=== PATIENT | male | born 1975 | race Two or more races ===

== ENCOUNTER 2024-11-14 20:06 | Emergency (ER) | payer MEDICARE, MEDICAID ==
[~2024-11-14] VITALS: Ht 182.9 cm; Wt 130.0 kg
[2024-11-14] MEDS ORDERED: ATOR10TA PO (20:47)
[2024-11-14] MEDS ORDERED: AMLO1TAB23 PO (20:47)
--- NOTE | 2024-11-14 20:48 | ED.PDOC ---
History of Present Illness HPI Comments 49 year old male presents to ER for medication refill. Patient with past medical history significant for hypertension and hyperlipidemia reports that he ran out of his amlodipine 10 mg QD and atorvastatin 10 mg QD two days ago and presents to ER today for medication refill of these medications, bringing with him his empty prescription bottles of these 2 medications. Denies any pain and states he currently is not experiencing any symptoms. Patient presents to ER ambulatory on arrival, alert oriented x4, with steady gait, in no distress with vitals stable and states he is following up with his PCP in 2 days. Denies headache, dizziness, shortness of breath, chest pain or any further symptoms/complaints Time Seen by MD: 20:08 Primary Care Provider: "HIREN" Reviewed Notes: Nurses Notes, Medications, Allergies Home Meds Active Scripts Atorvastatin Calcium (Lipitor) 10 Mg Tab, 1 TAB PO QPM, #30 TAB 0 Refills Prov:JON CASTILLO 11/14/24 Amlodipine Besylate (Amlodipine Besylate) 10 Mg Tab, 1 TAB PO DAILY, #7 TAB 0 Refills Prov:JON CASTILLO 11/14/24 Information Source: Patient Mode of Arrival: Ambulatory Past Medical History PAST MEDICAL HISTORY: High Lipids, HTN Surgical History: Denies all surgeries Family History Family History: Unknown Social History Smoker: Non-Smoker Alcohol: Denies ETOH Use Drugs: Denies Drug Use Lives In: Home Constitutional: reports: others (As stated in HPI) EENTM: denies: blurred vision, double vision, ear bleeding, ear discharge, ear drainage, ear pain, ear ringing, eye pain, eye redness, hearing loss, mouth pain, mouth swelling, nasal discharge, nose bleeding, nose congestion, nose pain, photophobia, tearing, throat pain, throat swelling, voice changes, others Respiratory: denies: cough, hemoptysis, orthopnea, SOB at rest, shortness of breath, SOB with excertion, stridor, wheezing, others Cardiovascular: denies: chest pain, dizzy spells, diaphoresis, Dyspnea on exertion, edema, irregular heart beat, left arm pain, lightheadedness, palpitations, PND, syncope, others Gastrointestinal: denies: abdomen distended, abdominal pain, blood streaked bowels, constipated, diarrhea, dysphagia, difficulty swallowing, hematemesis, melena, nausea, poor appetite, poor fluid intake, rectal bleeding, rectal pain, vomiting, others Genitourinary: denies: burning, dysuria, flank pain, frequency, hematuria, in continence, penile discharge, penile sore, pain, testicle pain, testicle swelling, urgency, others Neurological: denies: dizziness, fainting, headache, left sided numbness, left sided weakness, numbness, paresthesia, pre-existing deficit, right sided numbness, right sided weakness, seizure, speech problems, tingling, tremors, weakness, others Musculoskeletal: denies: back pain, gout, joint pain, joint swelling, muscle pain, muscle stiffness, neck pain, others Integumetry: denies: bruises, change in color, change in hair/nails, dryness, laceration, lesions, lumps, rash, wounds, others Allergic/Immunocompromised: denies: Difficulty Healing, Frequent Infections, Hives, Itching, others Hematologic/Lymphatic: denies: anemia, blood clots, easy bleeding, easy bruising, swollen glands, others Endocrine: denies: excessive hunger, excessive sweating, excessive thirst, excessive urination, flushing, intolerance to cold, intolerance to heat, unexplained weight gain, unexplained weight loss, others Psychiatric: denies: anxiety, bipolar disorder, depression, hopeless, panic disorder, schizophrenia, sleepless, suicidal, others Physical Exam General Appearance: No Apparent Distress, Obese HEENT: PERRL/EOMI Neck: Full Range of Motion, Non-Tender, Normal Respiratory: Chest Non-Tender, Lungs Clear, No Accessory Muscle Use, No Respiratory Distress, Normal Breath Sounds Cardiovascular: No Murmur, No Gallop, Regular Rate/Rhythm Breast Exam: Deferred Gastrointestinal: NOT DONE Genitalia: Deferred Pelvic: Deferred Rectal: Deferred Extremities: Normal capillary refill, Normal range of motion Neurologic: Alert, finance consultant II-XII nml as Tested, No Motor Deficits, Normal Affect, Normal Mood, No Sensory Deficits Cerebellar Function: Normal Reflexes: Normal Skin: Dry, Normal Color, Warm Lymphatic: No Adenopathy Was a procedure done? Was a procedure done?: No Sedation Sedation?: No Differential Dx Considerations may include: HYPERTENSIVE URGENCY, HYPERTENSIVE EMERGENCY, CVA X-Ray, Labs, Meds, VS PATIENT ASYMPTOMATIC DURING ER VISIT/PRIOR TO DISCHARGE ADVISED TO FOLLOW UP WITH PCP IN 1-2 DAYS PATIENT VERBALIZED UNDERSTANDING AND AGREEABLE WITH CURRENT PLAN OF CARE ADVISED TO RETURN TO ER IMMEDIATELY IF SYMPTOMS WORSEN Time of 1ST Reevaluation: 20:20 Reevaluation 1ST: N/A Patient Education/Counseling: Diagnosis, Treatment, Prognosis, Need For Follow Up Family Education/Counseling: No Family Present Departure 1 Departure Time of Disposition: 20:42 Impression: Primary Impression: Hypertension Qualified Codes: I10 - Essential (primary) hypertension Additional Impressions: Hyperlipemia Qualified Codes: E78.5 - Hyperlipidemia, unspecified Medication refill Disposition: HOME / SELF CARE / HOMELESS Condition: Stable e-Prescriptions Atorvastatin Calcium (Lipitor) 10 Mg Tab 1 TAB PO QPM, #30 TAB 0 Refills Prov: JON CASTILLO 11/14/24 Amlodipine Besylate (Amlodipine Besylate) 10 Mg Tab 1 TAB PO DAILY, #7 TAB 0 Refills Prov: JON CASTILLO 11/14/24 Discharged With: Self Critical Care Note Critical Care Time?: No Stability Stability form required: No Heart Score Heart Score: Heart Score Response (Comments) Value History N/A 0 EKG N/A 0 Age N/A 0 Risk Factors N/A 0 Troponin N/A 0 Total 0 JON CASTILLO Nov 14, 2024 20:48
[2024-11-14 22:42] VITALS: BP 123/79; PULSE 94; RESP 14; TEMP 98.3; O2SAT 95
== END 2024-11-14 22:43 | disposition home or self-care (01) ==
LOC: ER 20:06
DX: I10 Essential (primary) hypertension (principal); E78.5 Hyperlipidemia, unspecified; Z76.0 Encounter for issue of repeat prescription; Z79.899 Other long term (current) drug therapy

== ENCOUNTER 2025-01-14 18:10 | Emergency (ER) | payer MEDICARE, MEDICAID ==
[~2025-01-14] VITALS: Ht 190.5 cm; Wt 127.6 kg
[~2025-01-14 18:10] MED LIST: AMLO1TAB23 PO; ATOR10TA PO
--- NOTE | 2025-01-14 21:23 | ED.PDOC ---
Musculoskeletal HPI Comments 49 y/o M presents with right forearm pain, bruising, and swelling. Onset of symptoms after wrestling, yesterday. No additional injuries or acute symptoms reported. Chief Complaint: Upper Extremity Time Seen by MD: 21:10 Primary Care Provider: "HIREN" Reviewed Notes: Nurses Notes, Medications, Allergies Allergies: Coded Allergies: Hydromorphone (Verified Allergy, Unknown, 11/14/24) Penicillins (Verified Allergy, Unknown, 11/14/24) Home Meds Active Scripts Atorvastatin Calcium (Lipitor) 10 Mg Tab, 1 TAB PO QPM, #30 TAB 0 Refills Prov:JON CASTILLO 11/14/24 Amlodipine Besylate (Amlodipine Besylate) 10 Mg Tab, 1 TAB PO DAILY, #7 TAB 0 Refills Prov:JON CASTILLO 11/14/24 Information Source: Patient Mode of Arrival: Ambulatory Location: Left Extremity Location: Arm Past Medical History PAST MEDICAL HISTORY: High Lipids, HTN Surgical History: Denies all surgeries Family History Family History: Unknown Social History Smoker: Non-Smoker Alcohol: Denies ETOH Use Drugs: Denies Drug Use Lives In: Home All Other Systems: Reviewed and Negative (as per HPI) Physical Exam General Appearance: No Apparent Distress, Normal HEENT: Normal ENT Inspection, Pharynx Normal, TMs Normal Neck: Full Range of Motion, Non-Tender, Normal, Normal Inspection Respiratory: Chest Non-Tender, Lungs Clear, No Accessory Muscle Use, No Respiratory Distress, Normal Breath Sounds Cardiovascular: No Edema, No JVD, No Murmur, No Gallop, Normal Peripheral Pulses, Regular Rate/Rhythm Breast Exam: Deferred Gastrointestinal: No Organomegaly, Non Tender, No Pulsatile Mass, Normal Bowel Sounds, Soft Genitalia: Deferred Pelvic: Deferred Rectal: Deferred Extremities: No calf tenderness, Normal capillary refill, Normal range of motion, Non-tender, No pedal edema, Other (moderate to severe edema and ecchymosis to right forearm; sensorimotor intact) Musculoskeletal : Apperance: Normal Neurologic: Alert, presser and shaper knitted goods II-XII nml as Tested, No Motor Deficits, Normal Affect, Normal Mood, No Sensory Deficits, Other (right forearm sensorimotor intact) Cerebellar Function: Normal Reflexes: Normal Skin: Dry, Normal Color, Warm Lymphatic: No Adenopathy Was a procedure done? Was a procedure done?: No Differential Diagnosis EXT Differential Diagnosis: Cellulitis, CHF, Deep Vein Thrombosis, Fracture, Sprain, Contusion, Strain, Neurovascular injury X-Ray, Labs, Meds, VS Vital Signs Date Time Temp Pulse Resp B/P (MAP) Pulse Ox O2 Delivery O2 Flow Rate FiO2 01/14/25 22:08 98.4 76 19 126/78 (94) 94 98.4 01/14/25 22:08 76 19 94 Room Air 01/14/25 18:12 98.5 100 18 132/91 96 98.5 Current Medications Medications (Trade) Dose Ordered Sig/Pooja Route Start Time Stop Time Status Last Admin Ketorolac Tromethamine (Toradol Injection) 60 mg ONCE ONCE IM 01/14/25 21:45 01/14/25 21:46 DC 01/14/25 22:04 Acetaminophen/ Hydrocodone Bitart ([place] 5/325MG Tab) 1 tab ONCE ONCE PO 01/14/25 21:45 01/14/25 21:46 DC 01/14/25 22:03 Time of 1ST Reevaluation: 21:40 Reevaluation 1ST: Unchanged Patient Education/Counseling: Diagnosis, Treatment Family Education/Counseling: No Family Present Departure 1 Departure Time of Disposition: 23:02 Impression: Primary Impression: Contusion of right forearm, initial encounter Disposition: HOME / SELF CARE / HOMELESS Condition: Stable e-Prescriptions Nabumetone (Nabumetone) 750 Mg Tab 1 TAB PO BID PRN for 7 Days, #14 TAB Prov: MADELINE MENDOZA 01/14/25 Discharged With: Self Critical Care Note Critical Care Time?: No Stability Stability form required: No Heart Score Heart Score: Heart Score Response (Comments) Value History N/A 0 EKG N/A 0 Age N/A 0 Risk Factors N/A 0 Troponin N/A 0 Total 0 I personally scribed for ER ([email or web address]) on 01/14/25 at 21:23. Electronically submitted by Omega Diaz ([email or web address]). ER Jan 14, 2025 21:23 MADELINE MENDOZA LEAD J[employer] DEVELOPER ARCHITECT Jan 14, 2025 21:35
--- NOTE | 2025-01-14 21:43 | DVH ---
CLINICAL INDICATION: INJURY. SWELLING TECHNIQUE: 2 radiographic views of the right forearm were obtained. Comparison: None FINDINGS/IMPRESSION: Soft tissue swelling No fracture or dislocation
[2025-01-14] MEDS: HYDROcodone-ACET 5/325MG TAB PO ONE (22:03)
[2025-01-14] MEDS: KETOROLAC TROMETH 60MG/2ML VIAL IM ONE (22:04)
[2025-01-14 22:08] VITALS: BP 126/78; PULSE 76; RESP 19; TEMP 98.4; O2SAT 94
[2025-01-14] MEDS: LIDOCAINE 1% HCL (LOCAL ANESTH.) INJ 20ML MDV ONE (22:51)
[2025-01-14] MEDS ORDERED: NABU-74 PO (23:03)
== END 2025-01-15 00:20 | disposition home or self-care (01) ==
LOC: ER 18:10
DX: S50.11XA Contusion of right forearm, initial encounter (principal); Z88.5 Allergy status to narcotic agent; Z88.0 Allergy status to penicillin; X58.XXXA Exposure to other specified factors, initial encounter; Y93.72 Activity, wrestling; Y92.89 Other specified places as the place of occurrence of the external cause; Y99.8 Other external cause status
CPT/HCPCS: 73090; 96372; 99283; J1885; J2003

== ENCOUNTER 2025-03-29 15:56 | Inpatient (IN) | payer MEDICARE, MEDICAID ==
[~2025-03-29] VITALS: Ht 190.5 cm; Wt 132.9 kg
--- NOTE | 2025-03-29 17:58 | ED.PDOC ---
History of Present Illness HPI Comments 49-year-old male presents to the ER with a prior medical history of high lipids, hypertension: Surgical history of abscess surgery and the chief complaint of he replacement. Patient reports on having a possible tube near his rectum sticking out status post abscess surgery 1.5 years ago. Patient notes that he did not follow up with the surgeon after denies any other symptoms at this time. Chief Complaint: Tube Replacement Time Seen by MD: 17:24 Primary Care Provider: "HIREN" Reviewed Notes: Nurses Notes, Medications, Allergies Allergies: Coded Allergies: Hydromorphone (Verified Allergy, Unknown, 11/14/24) Penicillins (Verified Allergy, Unknown, 11/14/24) Home Meds Active Scripts Atorvastatin Calcium (Lipitor) 10 Mg Tab, 1 TAB PO QPM, #30 TAB 0 Refills Prov:JON CASTILLO 11/14/24 Amlodipine Besylate (Amlodipine Besylate) 10 Mg Tab, 1 TAB PO DAILY, #7 TAB 0 Refills Prov:JON CASTILLO 11/14/24 Information Source: Patient Mode of Arrival: Ambulatory Severity: Moderate Timing: Months Prehospital treatment: None Past Medical History PAST MEDICAL HISTORY: High Lipids, HTN Surgical History (Other): Abscess surgery Family History Family History: Reviewed,noncontributory to illness, Unknown Social History Smoker: Non-Smoker Alcohol: Denies ETOH Use Drugs: Denies Drug Use Lives In: Home Constitutional: reports: others (Possible tube near rectum that needs to be removed S/P surgery 1.5 years ago); denies: chills, diaphoresis, fatigue, fever, malaise, sweats, weakness EENTM: denies: blurred vision, double vision, ear bleeding, ear discharge, ear drainage, ear pain, ear ringing, eye pain, eye redness, hearing loss, mouth pain, mouth swelling, nasal discharge, nose bleeding, nose congestion, nose pain, photophobia, tearing, throat pain, throat swelling, voice changes, others Respiratory: denies: cough, hemoptysis, orthopnea, SOB at rest, shortness of breath, SOB with excertion, stridor, wheezing, others Cardiovascular: denies: chest pain, dizzy spells, diaphoresis, Dyspnea on exertion, edema, irregular heart beat, left arm pain, lightheadedness, palpitations, PND, syncope, others Gastrointestinal: denies: abdomen distended, abdominal pain, blood streaked bowels, constipated, diarrhea, dysphagia, difficulty swallowing, hematemesis, melena, nausea, poor appetite, poor fluid intake, rectal bleeding, rectal pain, vomiting, others Genitourinary: denies: burning, dysuria, flank pain, frequency, hematuria, incontinence, penile discharge, penile sore, pain, testicle pain, testicle swelling, urgency, others Neurological: denies: dizziness, fainting, headache, left sided numbness, left sided weakness, numbness, paresthesia, pre-existing deficit, right sided numbness, right sided weakness, seizure, speech problems, tingling, tremors, weakness, others Musculoskeletal: denies: back pain, gout, joint pain, joint swelling, muscle pain, muscle stiffness, neck pain, others Integumetry: denies: bruises, change in color, change in hair/nails, dryness, laceration, lesions, lumps, rash, wounds, others Allergic/Immunocompromised: denies: Difficulty Healing, Frequent Infections, Hives, Itching, others Hematologic/Lymphatic: denies: anemia, blood clots, easy bleeding, easy bruising, swollen glands, others Endocrine: denies: excessive hunger, excessive sweating, excessive thirst, excessive urination, flushing, intolerance to cold, intolerance to heat, unexplained weight gain, unexplained weight loss, others Psychiatric: denies: anxiety, bipolar disorder, depression, hopeless, panic disorder, schizophrenia, sleepless, suicidal, others All Other Systems: Reviewed and Negative Physical Exam General Appearance: No Apparent Distress, Normal HEENT: Normal ENT Inspection, Pharynx Normal, TMs Normal Neck: Full Range of Motion, Non-Tender, Normal, Normal Inspection Respiratory: Chest Non-Tender, Lungs Clear, No Accessory Muscle Use, No Respiratory Distress, Normal Breath Sounds Cardiovascular: No Edema, No JVD, No Murmur, No Gallop, Normal Peripheral Pulses, Regular Rate/Rhythm Breast Exam: Deferred Gastrointestinal: No Organomegaly, Non Tender, No Pulsatile Mass, Normal Bowel Sounds, Soft Genitalia: Deferred Pelvic: Deferred Rectal: Deferred Extremities: No calf tenderness, Normal capillary refill, Normal inspection, Normal range of motion, Non-tender, No pedal edema Musculoskeletal : Apperance: Normal Neurologic: Alert, social studies teacher II-XII nml as Tested, No Motor Deficits, Normal Affect, Normal Mood, No Sensory Deficits Cerebellar Function: Normal Reflexes: Normal Skin: Dry, Normal Color, Warm Lymphatic: No Adenopathy Was a procedure done? Was a procedure done?: No Differential Dx Considerations may include: Intra-abdominal abscess, cellulitis, abnormal surgical process X-Ray, Labs, Meds, VS Vital Signs Date Time Temp Pulse Resp B/P (MAP) Pulse Ox O2 Delivery O2 Flow Rate FiO2 03/29/25 21:30 99.7 105 16 122/97 (105) 96 99.7 03/29/25 15:58 99.7 104 20 146/90 97 99.7 Lab Test 03/29/25 19:43 03/29/25 18:27 03/29/25 18:18 Range/Units Troponin I High Sensitivity 3 L < 3 L </=54 ng/L Lactic Acid Level 1.5 0.4-2.0 mmol/L White Blood Count 12.8 H 4.4-10.8 10^3/uL Red Blood Count 4.71 4.5-5.90 10^6/uL Hemoglobin 15.8 13.5-17.5 g/dL Hematocrit 46.4 41.0-53.0 % Mean Corpuscular Volume 98.4 80.0-100.0 fL Mean Corpuscular Hemoglobin 33.4 H 28.0-32.0 pg Mean Corpuscular Hemoglobin Concent 34.0 32.0-36.0 g/dL Red Cell Distribution Width 13.4 11.8-14.3 % Platelet Count 254 140-450 10^3/uL Mean Platelet Volume 8.0 6.9-10.8 fL Neutrophils (%) (Auto) 84.8 H 37.0-80.0 % Lymphocytes (%) (Auto) 8.1 L 10.0-50.0 % Monocytes (%) (Auto) 6.2 0.0-12.0 % Eosinophils (%) (Auto) 0.4 0.0-7.0 % Basophils (%) (Auto) 0.5 0.0-2.0 % Neutrophils # (Auto) 10.9 H 1.6-8.6 10 ^3/uL Lymphocytes # (Auto) 1.0 0.4-5.4 10 ^3/uL Monocytes # (Auto) 0.8 0-1.3 10 ^3/uL Eosinophils # (Auto) 0 0-0.8 10 ^3/uL Basophils # (Auto) 0.1 0-0.2 10 ^3/uL Nucleated Red Blood Cells 0.1 % Sodium Level 139 136-145 mmol/L Potassium Level 4.0 3.5-5.1 mmol/L Chloride Level 104 98-107 mmol/L Carbon Dioxide Level 26 20-31 mmol/L Anion Gap 9 5-15 Blood Urea Nitrogen 9 9-23 mg/dL Creatinine 0.84 0.700-1.30 mg/dL Glomerular Filtration Rate Calc 107 >90 mL/min BUN/Creatinine Ratio 10.7 10.0-20.0 Serum Glucose 103 74-106 mg/dL Calcium Level 9.9 8.7-10.4 mg/dL Current Medications Medications (Trade) Dose Ordered Sig/Pooja Route Start Time Stop Time Status Last Admin Levofloxacin/ Dextrose 100 ml @ 100 mls/hr ONCE ONCE IV 03/29/25 21:15 03/29/25 22:14 DC 03/29/25 21:52 Metronidazole 100 ml @ 100 mls/hr ONCE ONCE IV 03/29/25 21:15 03/29/25 22:14 DC 03/29/25 22:56 Time of 1ST Reevaluation: 17:54 Reevaluation 1ST: Unchanged Patient Education/Counseling: Diagnosis, Treatment, Prognosis Family Education/Counseling: No Family Present SEPSIS Sepsis Screen Date sepsis recognized/suspect: Mar 29, 2025 Time Sepsis recognized/suspect: 1601 Recent Procedure: No On Antibiotic Therapy: No Respiratory Rate >20: No Heart Rate >90: Yes Temp<36 C (96.8 F) or >38.3 C: No SBP <90 or MAP <65 mmHG: No New Acute Mental Status Change: No Is the patient on CPAP, BIPAP,: No Physician Orders Chest Portable (03/29/25 17:47) Blood Culture (03/29/25 17:47) Ct Ab Pel With Iv Con Only (03/29/25 17:47) Vital Signs Date Time Temp Pulse Resp B/P (MAP) Pulse Ox O2 Delivery O2 Flow Rate FiO2 03/29/25 21:30 99.7 105 16 122/97 (105) 96 99.7 03/29/25 15:58 99.7 104 20 146/90 97 99.7 Laboratory Tests Test 03/29/25 18:18 03/29/25 18:27 White Blood Count 12.8 10^3/uL (4.4-10.8) H Lactic Acid Level 1.5 mmol/L (0.4-2.0) Medications Medications Dose Ordered Sig/Pooja Route Start Time Stop Time Status Last Admin Dose Admin Levofloxacin/ Dextrose 100 ml @ 100 mls/hr ONCE ONCE IV 03/29/25 21:15 03/29/25 22:14 DC 03/29/25 21:52 Metronidazole 100 ml @ 100 mls/hr ONCE ONCE IV 03/29/25 21:15 03/29/25 22:14 DC 03/29/25 22:56 Departure 1 Departure Time of Disposition: 21:00 Impression: Primary Impression: Intra-abdominal infection Disposition: ADMITTED INPATIENT Condition: Stable Comments Patient admitted to hospitalist service for further treatment, evaluation and monitoring. Critical Care Note Critical Care Time?: No Stability Stability form required: No Heart Score Heart Score: Heart Score Response (Comments) Value History N/A 0 EKG N/A 0 Age N/A 0 Risk Factors N/A 0 Troponin N/A 0 Total 0 I personally scribed for YOLA GALVAN MD ([email or web address]) on 03/29/25 at 17:58. Electronically submitted by Nino Shepard ([email or web address]). YOLA GALVAN MD Mar 29, 2025 17:58 BENJA ORTIZ MD Mar 30, 2025 06:02
[2025-03-29 18:46] LABS: Hematocrit 46.4 % (41.0-53.0); Hemoglobin 15.8 g/dL (13.5-17.5); Mean Corpuscular Hemoglobin 33.4 pg (28.0-32.0); Mean Corpuscular Volume 98.4 fL (80.0-100.0); Nucleated Red Blood Cells % 0.1 %
[2025-03-29 18:55] LABS: Chloride 104 mmol/L (98-107); Potassium 4.0 mmol/L (3.5-5.1); Sodium 139 mmol/L (136-145)
[2025-03-29 18:56] LABS: Anion Gap 9 (5-15); Carbon Dioxide 26 mmol/L (20-31)
[2025-03-29 18:57] LABS: Calcium 9.9 mg/dL (8.7-10.4)
[2025-03-29 19:02] LABS: BUN/Creatinine Ratio 10.7 (10.0-20.0); Blood Urea Nitrogen 9 mg/dL (9-23); Glucose 103 mg/dL (74-106)
--- NOTE | 2025-03-29 19:57 | DVH ---
EXAM: XY CHEST PORTABLE HISTORY: abdominal pain TECHNIQUE: 1 view of the chest COMPARISON: None FINDINGS/IMPRESSION: LUNGS: Area of wedge-shaped alveolar opacity of the periphery of the left upper lobe. MEDIASTINUM: Unremarkable. BONES: No acute osseous abnormality. OTHER: None.
--- NOTE | 2025-03-29 20:23 | DVH ---
EXAM: CT CT AB PEL WITH IV CON ONLY HISTORY: abdominal pain TECHNIQUE: Volumetric multidetector CT images of the abdomen and pelvis were obtained after the administration of intravenous contrast. All CT scans at this facility use dose modulation, iterative reconstruction, and/or weight based dosing when appropriate to reduce radiation dose to as low as reasonably achievable. COMPARISON: None FINDINGS: [LOWER CHEST]: Oval-shaped masslike density located in the left lung base measuring 29 x 23 mm. [LIVER]: Normal hepatic size without suspicious focal lesion. [GALLBLADDER AND BILIARY TREE]: No cholelithiasis. [SPLEEN]: Unremarkable. [PANCREAS]: Unremarkable. [ADRENAL GLANDS]: Unremarkable [KIDNEYS]: No hydronephrosis. No nephroureterolithiasis. Benign appearing renal cysts, compatible with Bosniak type I cyst. No imaging follow-up required. [BLADDER]: Decompressed [REPRODUCTIVE ORGANS]: Unremarkable. [BOWEL/MESENTERY]: Stomach is normal. No CT evidence of bowel obstruction. normal appendix. [ASCITES]: Absent [LYMPHADENOPATHY]: No pathologically enlarged lymph nodes by CT size criteria [VASCULATURE]: No aneurysmal dilatation. [ABDOMINAL WALL]: Small fat containing left inguinal hernia [MUSCULOSKELETAL]: No acute fracture or aggressive focal osseous lesion. IMPRESSION: 1. No CT evidence of an acute abdominal/pelvic process. 2. Oval-shaped masslike density located in the left lung base measuring 29 x 23 mm. 3. Consider further evaluation with dedicated CT of the chest with contrast.
[2025-03-29] MEDS: IOHEXOL 300 MG/ML 100ML BOTTLE IJ ONE (21:28)
--- NOTE | 2025-03-29 21:52 | DVHHPRES ---
History of Present Illness Resident Creating Document: SILVIO PHAN RESIDENT History of Present Illness Valente Walsh, 49-year-old male with past medical history of hypertension on multiple medications, hyperlipidemia, history of rectal surgery with a tube in place, dental caries and infection presented to the ER with the complaints of neck and facial swelling and pain, associated with fever. He also complains of pain in the perirectal region. The patient had a rectal surgery in [place], he was supposed to follow up in October for tube removal, which he did not. Currently he is experiencing nausea, headache. He also reports having mild chest tightness. He has dry cough with no phlegm, no hemoptysis however he occasionally notices red streaks with clear sputum. He reports having a neighbor with flu symptoms. He did not receive his flu vaccine. Past surgical history: Ankle and wrist surgery, rectal surgery with tube in placed By home medications: Amlodipine, atorvastatin, losartan, hydralazine, atenolol Allergies: Penicillin, Dilaudid Family history: Hypertension and heart disease in parents and siblings. Smoking history: 20 cigarettes per day. Twenty-five pack year Alcohol: Once a month Drugs: Previously marijuana. Quit many years ago Code status: Full code Review of Systems Constitutional: Yes: Fever Respiratory: Cough Skin: Other (Rectal abscess, facial and neck swelling) Allergies: Coded Allergies: Hydromorphone (Verified Allergy, Unknown, 11/14/24) Penicillins (Verified Allergy, Unknown, 11/14/24) Exam Vital Signs Vital Signs Date Time Temp Pulse Resp B/P (MAP) Pulse Ox O2 Delivery O2 Flow Rate FiO2 03/29/25 21:30 99.7 105 16 122/97 (105) 96 99.7 Exam Pt is lying on bed General Appearance: Alert, Oriented X3, Cooperative, Mild distress HEENT: Dental caries and dental infection. Facial and neck swelling. Respiratory: Clear to auscultation, Normal air movement, No added sounds Cardiovascular: Regular rate, Normal S1, Normal S2, No murmurs Abdominal/ : Active bowel sounds, Soft, no distention, no tenderness Extremities: No edema, Normal pulses, No tenderness/swelling Skin: Rectal abscess with the tube in place, Neuro: Normal speech, sensorimotor deficits none Psych/Mental Status: Mental status NL, Mood NL Nurse was there as music journalist during examination Labs/Xrays Labs Test 03/29/25 19:43 03/29/25 18:27 03/29/25 18:18 Range/Units Troponin I High Sensitivity 3 L </=54 ng/L Lactic Acid Level 1.5 0.4-2.0 mmol/L White Blood Count 12.8 H 4.4-10.8 10^3/uL Red Blood Count 4.71 4.5-5.90 10^6/uL Hemoglobin 15.8 13.5-17.5 g/dL Hematocrit 46.4 41.0-53.0 % Mean Corpuscular Volume 98.4 80.0-100.0 fL Mean Corpuscular Hemoglobin 33.4 H 28.0-32.0 pg Mean Corpuscular Hemoglobin Concent 34.0 32.0-36.0 g/dL Red Cell Distribution Width 13.4 11.8-14.3 % Platelet Count 254 140-450 10^3/uL Mean Platelet Volume 8.0 6.9-10.8 fL Neutrophils (%) (Auto) 84.8 H 37.0-80.0 % Lymphocytes (%) (Auto) 8.1 L 10.0-50.0 % Monocytes (%) (Auto) 6.2 0.0-12.0 % Eosinophils (%) (Auto) 0.4 0.0-7.0 % Basophils (%) (Auto) 0.5 0.0-2.0 % Neutrophils # (Auto) 10.9 H 1.6-8.6 10 ^3/uL Lymphocytes # (Auto) 1.0 0.4-5.4 10 ^3/uL Monocytes # (Auto) 0.8 0-1.3 10 ^3/uL Eosinophils # (Auto) 0 0-0.8 10 ^3/uL Basophils # (Auto) 0.1 0-0.2 10 ^3/uL Nucleated Red Blood Cells 0.1 % Sodium Level 139 136-145 mmol/L Potassium Level 4.0 3.5-5.1 mmol/L Chloride Level 104 98-107 mmol/L Carbon Dioxide Level 26 20-31 mmol/L Anion Gap 9 5-15 Blood Urea Nitrogen 9 9-23 mg/dL Creatinine 0.84 0.700-1.30 mg/dL Glomerular Filtration Rate Calc 107 >90 mL/min BUN/Creatinine Ratio 10.7 10.0-20.0 Serum Glucose 103 74-106 mg/dL Calcium Level 9.9 8.7-10.4 mg/dL SEPSIS Sepsis Screen Date sepsis recognized/suspect: Mar 29, 2025 Time Sepsis recognized/suspect: 1601 Recent Procedure: No On Antibiotic Therapy: No Respiratory Rate >20: No Heart Rate >90: Yes Temp<36 C (96.8 F) or >38.3 C: No SBP <90 or MAP <65 mmHG: No New Acute Mental Status Change: No Is the patient on CPAP, BIPAP,: No Physician Orders Chest Portable (03/29/25 17:47) Blood Culture (03/29/25 17:47) Ct Ab Pel With Iv Con Only (03/29/25 17:47) Levofloxacin 500mg (Levaquin 500mg/ 100m (03/29/25 21:15) Metronidazole 500mg/100ml (Flagyl 500mg/ (03/29/25 21:15) Vital Signs Date Time Temp Pulse Resp B/P (MAP) Pulse Ox O2 Delivery O2 Flow Rate FiO2 03/29/25 21:30 99.7 105 16 122/97 (105) 96 99.7 03/29/25 15:58 99.7 104 20 146/90 97 99.7 Laboratory Tests Test 03/29/25 18:18 03/29/25 18:27 White Blood Count 12.8 10^3/uL (4.4-10.8) H Lactic Acid Level 1.5 mmol/L (0.4-2.0) Assessment/Plan Assessment/Plan Sepsis due to rectal abscess Retropharyngeal or peritonsillar abscess -IV fluid -IV levofloxacin and IV metronidazole -blood culture, urinalysis ordered -abdomen pelvis CT: No CT evidence of an acute abdominal/pelvic process. Oval- shaped masslike density located in the left lung base measuring 29 x 23 mm. Co nsider further evaluation with dedicated CT of the chest with contrast. Lung mass Chest x-ray: Area of wedge-shaped alveolar opacity of the periphery of the left upper lobe. Outpatient follow up GI prophylaxis: Pantoprazole DVT prophylaxis: Lovenox Diet: Cardiac Goals of care discussed with the patient for more than 27 minutes: Full code status Case discussed with Dr. Albert , patient and RN Plan discussed with: Patient, Other Date of Service: Mar 29, 2025 Billing Provider: DENA ALBERT MD Common Visit Codes: [id number] INP/OBS CARE (HIGH) Secondary Visit Codes: [id number] CARE PLAN 30 MINUTES SILVIO PHAN Mar 29, 2025 21:52 DENA ALBERT MD Apr 03, 2025 11:21
[2025-03-29 21:56] VITALS: O2SAT 98
[2025-03-29] MEDS: SODIUM CHLORIDE 0.9% 1,000 ML IV ONE (22:56)
[2025-03-29 23:22] LABS: COVID19 ANTIGEN SOFIA FIA NEGATIVE (NEGATIVE)
[2025-03-29] MEDS: KETOROLAC TROMETH 30 MG/ML 1ML VIAL IV ONE (23:33)
[2025-03-30] VITALS (11 sets, daily range): BP systolic 118–139; BP diastolic 72–91; PULSE 77–100; RESP 17–18; TEMP 97.7–98.7; O2SAT 92–98
[2025-03-30] MEDS: PANTOPRAZOLE 40 MG TAB PO SCH (04:58)
[2025-03-30 06:07] LABS: Hemoglobin 14.7 g/dL (13.5-17.5); Nucleated Red Blood Cells % 0.1 %
[2025-03-30 06:09] LABS: Hematocrit 43.3 % (41.0-53.0); Mean Corpuscular Hemoglobin 33.5 pg (28.0-32.0); Mean Corpuscular Volume 98.5 fL (80.0-100.0)
[2025-03-30 06:48] LABS: Alanine Aminotransferase 25 U/L (7-40); Albumin 4.3 g/dL (3.2-4.8); Alkaline Phosphatase 73 U/L (46-116); Anion Gap 8 (5-15); BUN/Creatinine Ratio 12.2 (10.0-20.0); Bilirubin, Total 0.5 mg/dL (0.2-1.0); Blood Urea Nitrogen 10 mg/dL (9-23); Calcium 8.7 mg/dL (8.7-10.4); Carbon Dioxide 23 mmol/L (20-31); Chloride 106 mmol/L (98-107); Sodium 137 mmol/L (136-145); Total Protein 6.9 g/dL (5.7-8.2)
[2025-03-30 06:49] LABS: Glucose 142 mg/dL (74-106); Potassium 3.4 mmol/L (3.5-5.1)
[2025-03-30] MEDS: POTASSIUM CHL 20 Meq TABLET PO ONE (09:39)
[2025-03-30] MEDS: ENOXAPARIN SOD 40 MG/0.4 ML SYRINGE SC SCH (09:40)
[2025-03-30] MEDS ORDERED: AMPICILLIN & SULBACTAM SODIUM 3 GM in SODIUM CHL 0.9% 100 ML IV SCH (10:30)
[2025-03-30] MEDS: ACETAMINOPHEN 325 MG TAB PO SCH (11:05)
[2025-03-30] MEDS: ACETAMINOPHEN 325 MG TAB PO ONE (11:35)
[2025-03-30] MEDS: SODIUM CHLORIDE 0.9% 1,000 ML IV ONE (11:35)
[2025-03-30] MEDS ORDERED: MORPHINE SULFATE INJ 2 MG/ml SYRG IV PRN (12:00)
--- NOTE | 2025-03-30 13:32 | DVHINCON2 ---
Date of service: Mar 30, 2025 Family History: Cardiovascular disease G8 MOTHER, (STROKE) Diabetes mellitus G8 FATHER Hypertension G8 MOTHER, Allergies: Coded Allergies: Hydromorphone (Verified Allergy, Unknown, 11/14/24) Penicillins (Verified Allergy, Unknown, 11/14/24) Home Meds Active Scripts Atorvastatin Calcium (Lipitor) 10 Mg Tab, 1 TAB PO QPM, #30 TAB 0 Refills Prov:JON CASTILLO 11/14/24 Amlodipine Besylate (Amlodipine Besylate) 10 Mg Tab, 1 TAB PO DAILY, #7 TAB 0 Refills Prov:JON CASTILLO 11/14/24 Current Medications Current Medications Medications (Trade) Dose Ordered Sig/Pooja Route PRN Reason Start Time Stop Time Status Last Admin Levofloxacin/ Dextrose 100 ml @ 100 mls/hr DAILY IV 03/30/25 10:00 03/30/25 10:26 DC 03/30/25 09:39 Enoxaparin Sodium (Lovenox) 40 mg DAILY SC 03/30/25 10:00 03/30/25 09:40 Pantoprazole Sodium (Protonix Tablet) 40 mg DAILY@0600 PO 03/30/25 06:00 03/30/25 04:58 Acetaminophen (Tylenol Tablet) 650 mg Q6HR PO 03/30/25 12:00 Ibuprofen (Motrin Tablet) 600 mg Q8HP PRN PO MODERATE PAIN (4-6 PAIN SCALE) 03/30/25 10:15 Ampicillin Sodium/ Sulbactam Sodium 3 gm/Sodium Chloride 100 ml @ 100 mls/hr Q6H IV 03/30/25 10:30 03/30/25 11:13 DC Metronidazole 100 ml @ 100 mls/hr Q8HR IV 03/30/25 14:00 UNV Levofloxacin/ Dextrose 100 ml @ 100 mls/hr Q48H IV 03/30/25 11:15 UNV Morphine Sulfate 2 mg Q4HPRN PRN IV MODERATE PAIN (4-6 PAIN SCALE) 03/30/25 12:00 UNV Vital Signs Vital Signs Date Time Temp Pulse Resp B/P (MAP) Pulse Ox O2 Delivery O2 Flow Rate FiO2 03/30/25 13:00 98.5 87 18 118/81 (93) 98 98.5 03/29/25 21:56 Room Air* 0 21 Labs/Diagnostic Data Labs Test 03/30/25 05:30 03/29/25 22:39 03/29/25 19:43 03/29/25 18:27 Range/Units White Blood Count 10.0 4.4-10.8 10^3/uL Red Blood Count 4.39 L 4.5-5.90 10^6/uL Hemoglobin 14.7 13.5-17.5 g/dL Hematocrit 43.3 41.0-53.0 % Mean Corpuscular Volume 98.5 80.0-100.0 fL Mean Corpuscular Hemoglobin 33.5 H 28.0-32.0 pg Mean Corpuscular Hemoglobin Concent 34.0 32.0-36.0 g/dL Red Cell Distribution Width 13.4 11.8-14.3 % Platelet Count 232 140-450 10^3/uL Mean Platelet Volume 8.4 6.9-10.8 fL Neutrophils (%) (Auto) 73.0 37.0-80.0 % Lymphocytes (%) (Auto) 14.5 10.0-50.0 % Monocytes (%) (Auto) 11.1 0.0-12.0 % Eosinophils (%) (Auto) 1.0 0.0-7.0 % Basophils (%) (Auto) 0.4 0.0-2.0 % Neutrophils # (Auto) 7.3 1.6-8.6 10 ^3/uL Lymphocytes # (Auto) 1.4 0.4-5.4 10 ^3/uL Monocytes # (Auto) 1.1 0-1.3 10 ^3/uL Eosinophils # (Auto) 0.1 0-0.8 10 ^3/uL Basophils # (Auto) 0 0-0.2 10 ^3/uL Nucleated Red Blood Cells 0.1 % Sodium Level 137 136-145 mmol/L Potassium Level 3.4 L 3.5-5.1 mmol/L Chloride Level 106 98-107 mmol/L Carbon Dioxide Level 23 20-31 mmol/L Anion Gap 8 5-15 Blood Urea Nitrogen 10 9-23 mg/dL Creatinine 0.82 0.700-1.30 mg/dL Glomerular Filtration Rate Calc 108 >90 mL/min BUN/Creatinine Ratio 12.2 10.0-20.0 Serum Glucose 142 H 74-106 mg/dL Hemoglobin A1c 5.8 H <5.7 % A1C Calcium Level 8.7 8.7-10.4 mg/dL Total Bilirubin 0.5 0.2-1.0 mg/dL Aspartate Amino Transferase (AST) 14 13-40 U/L Alanine Aminotransferase (ALT) 25 7-40 U/L Alkaline Phosphatase 73 46-116 U/L Total Protein 6.9 5.7-8.2 g/dL Albumin 4.3 3.2-4.8 g/dL Vitamin B12 Level 272 211-911 pg/mL Vitamin D 25-Hydroxy 27.2 L 30.0-100 ng/mL Thyroid Stimulating Hormone (TSH) 1.08 0.55-4.78 uIU/mL Influenza Type A Antigen Negative Negative Influenza Type B Antigen Negative Negative SARS-CoV-2 Antigen (Rapid) Negative NEGATIVE Troponin I High Sensitivity 3 L </=54 ng/L Lactic Acid Level 1.5 0.4-2.0 mmol/L Assessment 03/30/25 patient had a perirectal abscess operated on in [place] about 6 months ago and was instructed at that time to follow up with the surgeon which he did not, there was a "tube" placed into the I and D site whioch was supposed to be removed"months ago" but patient failed top present to any MD till now when he is coming to ER due to pain. He would not allow me to do a thorough examination due to excessive pain. CT scan fails to visualize any acute pathology in his pelvis. Will do an examination under anesthesia and remove the tube in the OR tomorrow. Plan discussed with: Patient GEOFF FELTON MD Mar 30, 2025 13:32
[2025-03-30 15:24] LABS: Urine Protein, UAD TRACE (Negative)
[2025-03-30 15:36] LABS: Cocaine Screen, Urine Neg (NEGATIVE); Opiate Scree,Urine Neg (NEGATIVE); Phencyclidine Screen, Urine Neg (NEGATIVE)
[2025-03-30 15:37] LABS: Amphetamine Screen, Urine Neg (NEGATIVE); Barbiturate Scree,Urine Neg (NEGATIVE); Benzodiazephine Screen, Urine Neg (NEGATIVE); Cannabinoid Screen, Urine Neg (NEGATIVE)
[2025-03-30 15:59] LABS: INR 1.01 (0.9-1.15); Partial Thromboplastin Time 30.4 SEC (24.5-34.5); Prothrombin Time 10.7 sec (9.3-11.8)
--- NOTE | 2025-03-30 16:54 | DVH ---
CT MAXILLOFACIAL WITHOUT Indication: Maxillofacial infeciton EXAM DATE: 03/30/2025 02:02 PM COMPARISON: None TECHNIQUE: CT of the maxillofacial bones without intravenous contrast. RADIATION DOSE: CTDIvol: 67 mGy, DLP: 1280 mGy*cm FINDINGS: 7 mm aneurysm which appears to be arising off the anterior communicating artery. Parotid, manager media relations and parapharyngeal spaces preserved. Submandibular glands unremarkable. Orbits and retrobulbar spaces unremarkable. Nasopharynx, oropharynx patent. Epiglottis unremarkable. Mastoids well pneumatized. Mild mucosal thickening right maxillary sinus. There is right mandibular 2nd molar tooth periapical lucency/ abscess. Dental naveed of the right mandibular canine tooth., left mandibular canine tooth, right maxillary lateral incisor tooth. There is bilateral facial region soft tissue stranding/ skin thickening but no abscess identified. 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 Recommend dedicated CT angiogram head and neurosurgical consultation. Right mandibular 2nd molar tooth periapical lucency/ abscess. Bilateral facial region soft tissue stranding/ skin thickening but no abscess identified. Correlate for cellulitis and other etiologies.
[2025-03-30] MEDS: IBUPROFEN 600 MG TAB PO PRN (17:25)
--- NOTE | 2025-03-30 17:53 | DVH ---
PROCEDURE: CT HEAD AND NECK WITH CONTRAST Comparison: None Indication: Left sided numbness Technique: On the multirow-detector CT scanner, a volumetric scan is performed of head and neck after the administration of intravenous contrast. CTDIvol measures 22. DLP measures 919 mGy*cm Findings: Unremarkable appearance of the bilateral submandibular,and parotid glands. Unremarkable thyroid gland. No cervical lymphadenopathy. Partially visualized orbits unremarkable. Preserved fat within the pterygopalatine fossa. Symmetric appearing networking technology instructor space and parapharyngeal fat. No masslike enhancement within the aerodigestive tract. Multilevel degenerative changes of the cervical spine. Partially visualized masslike density in the periphery of the left upper lobe measuring up to 5 cm. 6 mm aneurysmal outpouching in the anterior communicating artery region. Suboptimal evaluation of the brain parenchyma on this nondedicated study. Given this limitation, no midline shift superior basal cisterns remain patent. No large parenchymal hematoma. IMPRESSION: No suspicious neck mass or cervical lymphadenopathy. Incompletely evaluated probable 6 mm aneurysm in the anterior communicating artery region. Recommend CTA for further evaluation. Masslike peripheral consolidation in the left upper lobe. Recommend CT chest for further evaluation.
[2025-03-30] MEDS: HYDROcodone-ACET 5/325MG TAB PO ONE (18:35)
--- NOTE | 2025-03-30 19:21 | DVHPNRES ---
Progress Note Date Seen: Mar 30, 2025 Resident Creating Document: OSCAR MORILLO Medical Necessity Reason Pt with a Central, PICC or Fol: No Objective vital signs Vital Sign Date Time Temp Pulse Resp B/P (MAP) Pulse Ox O2 Delivery O2 Flow Rate FiO2 03/30/25 16:46 98.2 83 17 139/91 (107) 94 98.2 03/30/25 14:26 Room Air* 0 21 Total Intake and Output 03/29/25 03/29/25 03/30/25 15:00 23:00 07:00 Intake Total 100 ml 100 ml Balance 100 ml 100 ml medications Current Medications Medications Dose Ordered Sig/Pooja Route Start Time Stop Time Status Last Admin Dose Admin Enoxaparin Sodium 40 mg DAILY SC 03/30/25 10:00 03/30/25 09:40 40 MG Pantoprazole Sodium 40 mg DAILY@0600 PO 03/30/25 06:00 03/30/25 04:58 40 MG Acetaminophen 650 mg Q6HR PO 03/30/25 12:00 Ibuprofen 600 mg Q8HP PRN PO 03/30/25 10:15 03/30/25 17:25 600 MG Metronidazole 100 ml @ 100 mls/hr Q8HR IV 03/30/25 14:00 03/30/25 17:16 100 MLS/HR Morphine Sulfate 2 mg Q4HPRN PRN IV 03/30/25 12:00 Hold Levofloxacin/ Dextrose 100 ml @ 100 mls/hr DAILY IV 03/31/25 10:00 laboratory and microbiology Laboratory Tests 03/30/25 05:30 Test 03/30/25 05:30 Range/Units Serum Glucose 142 H 74-106 mg/dL Microbiology Date/Time Source Procedure Growth Status 03/29/25 18:27 Blood Blood Culture - Preliminary NO GROWTH AFTER 24 HOURS OF INCUBATION. Resulted My Orders My Orders Orders - OSCAR MORILLO Procedure Category Date Status Time Complete Blood Count LAB 03/31/25 Verified 04:00 Comprehensive LAB 03/31/25 Verified Metabolic Panel 04:00 OSCAR MORILLO Mar 30, 2025 19:21
--- NOTE | 2025-03-30 19:42 | DVHPNRES ---
Progress Note Date Seen: Mar 30, 2025 Resident Creating Document: OSCAR MORILLO RESIDENT Medical Necessity Reason Pt with a Central, PICC or Fol: No Subjective Review of Systems Valente Walsh is a 49-year-old male with past medical history of dyslipidemia, hypertension who came in with complaints of facial pressure is and aches since 4 years. Patient says the pain has been on and off, the pain increased since the past 2 days. The pain is associated with fever and chills. Patient denies any shortness of breath , diarrhea and vomiting. he rates the abdominal pain 5 on 10 in intensity, both sharp and dull with no radiation. Patient reports that he had surgery for rectal abscess and surgery 6 months ago in [place]. He reports that the doctor said to come back and take the drain out but he did not see back in [place] and came back [place] patient says that the drain is still in the rectum. PMHx: dyslipidemia, hypertension PSHx: Ankle and wrist surgery, rectal surgery with tube in placed Family history: Hypertension and heart disease in parents and siblings. Social history: Twenty-five pack year smoking history Allergic history: penicillin, hydromorphone General: patient denies fever, fatigue, weaknes, sweating, any recent changes in appetite and weight HEENT: complains of pain in the left side of face Cardiovascular: Denies chest pain, palpitations, dyspnea on exertion, orthopnea, or claudication. Respiratory: No cough, and wheezing. Gastrointestinal: Denies nausea, vomiting, dysphagia, odynophagia, heartburn, abdominal pain, flatulence, bloating, diarrhea, constipation, change in stool, or blood in stool. Genitourinary: No dysuria, hematuria, discharge, frequency, urgency, nocturia, incontinence, and urinary retention. Endocrine: No heat or cold intolerance, polydipsia, polyuria, and polyphagia. Neurological: No dizziness, extremity weakness and numbness, tremors, gait disturbance, seizures, and memory impairment. Psychiatric: Denies depression, anxiety,or insomnia. Musculoskeletal: Denies neck pain, stiffness and swelling, back pain, muscle weakness, joint pain, stiffness, swelling, or limited range of motion. Skin: No rashes, itching, skin lesion, changes in hair, nail, skin texture and breast. Hematologic/Lymphatic: Denies easy bruising, bleeding tendencies, or lymph node enlargement. Objective vital signs Vital Sign Date Time Temp Pulse Resp B/P (MAP) Pulse Ox O2 Delivery O2 Flow Rate FiO2 03/30/25 16:46 98.2 83 17 139/91 (107) 94 98.2 03/30/25 14:26 Room Air* 0 21 Total Intake and Output 03/29/25 03/29/25 03/30/25 15:00 23:00 07:00 Intake Total 100 ml 100 ml Balance 100 ml 100 ml medications Current Medications Medications Dose Ordered Sig/Pooja Route Start Time Stop Time Status Last Admin Dose Admin Enoxaparin Sodium 40 mg DAILY SC 03/30/25 10:00 03/30/25 09:40 40 MG Pantoprazole Sodium 40 mg DAILY@0600 PO 03/30/25 06:00 03/30/25 04:58 40 MG Acetaminophen 650 mg Q6HR PO 03/30/25 12:00 Ibuprofen 600 mg Q8HP PRN PO 03/30/25 10:15 03/30/25 17:25 600 MG Metronidazole 100 ml @ 100 mls/hr Q8HR IV 03/30/25 14:00 03/30/25 17:16 100 MLS/HR Morphine Sulfate 2 mg Q4HPRN PRN IV 03/30/25 12:00 Hold Levofloxacin/ Dextrose 100 ml @ 100 mls/hr DAILY IV 03/31/25 10:00 Examination General Appearance: Alert, Oriented X3, Cooperative, No acute distress HEENT: tenderness in the left side of face Respiratory: Clear to auscultation, Normal air movement Cardiovascular: Regular rate, Normal S1, Normal S2, No murmurs, no chest wall tenderness Abdominal: Normal bowel sounds, Soft, No tenderness, No hepatospenomegaly, No masses Extremities: No clubbing, No cyanosis, No edema, Normal pulses, No tenderness/swelling Skin: No rashes, No breakdown, No significant lesion Neuro: Normal gait, Normal speech, Strength at 5/5 X4 ext, Normal tone, Sensation intact, Cranial nerves 3-12 NL, Reflexes 2+ Psych/Mental Status: Mental status NL, Mood NL laboratory and microbiology Laboratory Tests 03/30/25 05:30 Test 03/30/25 05:30 Range/Units Serum Glucose 142 H 74-106 mg/dL Microbiology Date/Time Source Procedure Growth Status 03/29/25 18:27 Blood Blood Culture - Preliminary NO GROWTH AFTER 24 HOURS OF INCUBATION. Resulted Problem List/Assessment/Plan Problem List/Assessment/Plan Assessment and plan Sepsis due to rectal abscess Retropharyngeal or peritonsillar abscess -IV fluid -IV levofloxacin and IV metronidazole -blood culture, urinalysis ordered -abdomen pelvis CT: No CT evidence of an acute abdominal/pelvic process. Oval- shaped masslike density located in the left lung base measuring 29 x 23 mm. Consider further evaluation with dedicated CT of the chest with contrast. Lung mass -Chest x-ray: Area of wedge-shaped alveolar opacity of the periphery of the left upper lobe. -Outpatient follow up Essential hypertension - target in-hospital blood pressure below 140/90 - follow up with PCP on discharge Dyslipidemia - Follow lipid levels vitamin-D deficiency - vitamin-D supplement GI prophylaxis: Pantoprazole DVT prophylaxis: Lovenox Diet : Cardiac Goals of care : Full code status Case discussed with Dr. Merida Plan discussed with: Patient My Orders My Orders Orders - OSCAR MORILLO Procedure Category Date Status Time Complete Blood Count LAB 03/31/25 Verified 04:00 Comprehensive LAB 03/31/25 Verified Metabolic Panel 04:00 Date of Service: Mar 30, 2025 Billing Provider: NYDIA HERNANDEZ MD Common Visit Codes: [id number] INP/OBS CARE(HIGH) OSCAR MORILLO Mar 30, 2025 19:42
--- NOTE | 2025-03-30 22:16 | DVHINCON2 ---
Date of service: Mar 30, [address] Enrique Reason for Consultation Left face numb, company migraine possible,pls anti-migraines History of Present Illness Mr. Walsh is a 49 years old right-handed gentleman with a history of hypertension, dyslipidemia, obesity, the patient is status post per rectal surgery, and he is here for tube replacement. But he also has other complaints He is a poor historian, time spent is 55 minutes In the high school, He developed periodic intense throbbing/pontine bilateral headache with nausea, increased sensitivity to lights, noise, the headache typically lasted for 5-6 hours or longer, and he had it once every 2-3 months of time, now a few times yearly. He does not have visual aura before the headache Since 2021, the patient has intermittent intense throbbing headache,6-7/10, numbness and pain in the left face, the pain person for 2-3 days, and happens once monthly, he takes aspirin for pain control His CT brain scan showed evidence of JEANA aneurysm UDS, 03/30/2025: Negative WBC/HB/PLT/MCV, 03/30/2025: 10/14.7/232/98.5 BMP 03/30/2025: Unremarkable LFT 03/30/2025: Unremarkable HGB A1c, 03/30/2025: 5.8 Vitamin B12, 03/30/25: 272 TSH, 03/30/2025: 1.3 CT head, neck, 03/30/2025: No suspicious neck mass or cervical lymphadenopathy. Incompletely evaluated probable 6 mm aneurysm in the anterior communicating artery region. Recommend CTA for further evaluation. Masslike peripheral consolidation in the left upper lobe. 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 Recommend dedicated CT angiogram head and neurosurgical consultation. Right mandibular 2nd molar tooth periapical lucency/ abscess. Bilateral facial region soft tissue stranding/ skin thickening but no abscess identified. Correlate for cellulitis and other etiologies. Past Medical History Hypertension, dyslipidemia, Past Surgical History Abscess surgery, teeth implantation, left wrist surgery Family History: Cardiovascular disease G8 MOTHER, (STROKE) Diabetes mellitus G8 FATHER Hypertension G8 MOTHER, Family History Hypertension, diabetes, stroke, heart disease, his mother has brain aneurysm Social History He smokes tobacco, but denies a history of drug/alcohol abuse Allergies: Coded Allergies: Hydromorphone (Verified Allergy, Unknown, 11/14/24) Penicillins (Verified Allergy, Unknown, 11/14/24) Home Meds Active Scripts Atorvastatin Calcium (Lipitor) 10 Mg Tab, 1 TAB PO QPM, #30 TAB 0 Refills Prov:JON CASTILLO 11/14/24 Amlodipine Besylate (Amlodipine Besylate) 10 Mg Tab, 1 TAB PO DAILY, #7 TAB 0 Refills Prov:JON CASTILLO 11/14/24 Current Medications Current Medications Medications (Trade) Dose Ordered Sig/Pooja Route PRN Reason Start Time Stop Time Status Last Admin Levofloxacin/ Dextrose 100 ml @ 100 mls/hr DAILY IV 03/30/25 10:00 03/30/25 10:26 DC 03/30/25 09:39 Enoxaparin Sodium (Lovenox) 40 mg DAILY SC 03/30/25 10:00 03/30/25 09:40 Pantoprazole Sodium (Protonix Tablet) 40 mg DAILY@0600 PO 03/30/25 06:00 03/30/25 04:58 Acetaminophen (Tylenol Tablet) 650 mg Q6HR PO 03/30/25 12:00 Ibuprofen (Motrin Tablet) 600 mg Q8HP PRN PO MODERATE PAIN (4-6 PAIN SCALE) 03/30/25 10:15 03/30/25 17:25 Ampicillin Sodium/ Sulbactam Sodium 3 gm/Sodium Chloride 100 ml @ 100 mls/hr Q6H IV 03/30/25 10:30 03/30/25 11:13 DC Metronidazole 100 ml @ 100 mls/hr Q8HR IV 03/30/25 14:00 03/30/25 21:31 Levofloxacin/ Dextrose 100 ml @ 100 mls/hr DAILY IV 03/30/25 11:15 03/30/25 14:27 DC Morphine Sulfate 2 mg Q4HPRN PRN IV MODERATE PAIN (4-6 PAIN SCALE) 03/30/25 12:00 Hold Levofloxacin/ Dextrose 100 ml @ 100 mls/hr DAILY IV 03/31/25 10:00 Review of Systems As above, the other systems are negative Vital Signs Vital Signs Date Time Temp Pulse Resp B/P (MAP) Pulse Ox O2 Delivery O2 Flow Rate FiO2 03/30/25 16:46 98.2 83 17 139/91 (107 94 98.2 03/30/25 14:26 Room Air* 0 21 Physical Exam GENERAL EXAM: General: the patient is well developed and nourished. No acute distress. HEENT: Normocephalic, neck is supple, no carotid bruits. No mass. RESPIRATORY: Normal respiratory effort with symmetrical lung expansion. Lungs clear to auscultation. CARDIOVASCULAR: Regular rate and rhythm with no murmurs. S1, S2. ABDOMEN: Soft, nontender, normal bowel sound s NEUROLOGICAL: MENTAL STATUS: Awake and alert. Oriented to person, place, time and general circumstances. Able to give personal history. SPEECH, LANGUAGE, HIGHER CORTICAL FUNCTION: no aphasia or dysathria. CRANIAL NERVES: #2: Intact visual chavarria to confrontation. The optic discs were sharp. #3,4,6: Pupils are equal, round and reactive. EOMs full and conjugate. No nystagmus. #5: Facial sensation intact in all three divisions bilaterally. Mandibular strength intact. #7: Facial muscles symmetrical and strength intact. #8: Hearing grossly normal to voice. #9,10: Uvula and soft palate rise in the midline. Swallow and voice are normal. #11: Trapezius and sternomastoid strength intact bilaterally. #12: Tongue midline. No fasciculations or atrophy. SENSATION: Sensation to touch and pinprick is normal. MOTOR: Normal tone in the upper and lower extremity. Normal muscle bulk. No fasciculations. No abnormal movements or posturing. Muscle strength of the major groups in the upper extremities is 5/5. Muscle strength of the major groups in the lower extremities is 5/5. REFLEXES: Deep tendon reflexes are symmetrical. No pathological reflexes. CEREBELLAR/COORDINATION: Finger to nose and heel to adams are normal bilaterally. GAIT/STATION: deferred. Labs/Diagnostic Data Labs Test 03/30/25 15:17 03/30/25 15:00 03/30/25 05:30 03/29/25 22:39 Range/Units Prothrombin Time 10.7 9.3-11.8 sec Prothrombin Time INR 1.01 0.9-1.15 Activated Partial Thromboplast Time 30.4 24.5-34.5 SEC Urine Color Yellow Yellow Urine Clarity Clear Clear Urine pH 5.5 5.0-9.0 Urine Specific [place] > 1.050 H 1.001-1.035 Urine Protein Trace H Negative Urine Ketones Trace Negative Urine Blood Trace H Negative /uL Urine Nitrite Negative Negative Urine Bilirubin Negative Negative Urine Urobilinogen Normal Negative mg/dL Urine Leukocyte Esterase Negative Negative /uL Urine RBC 1 0 - 3 /hpf Urine Microscopic WBC < 1 0-3 /HPF Urine Squamous Epithelial Cells None seen <5 /hpf Urine Bacteria None seen None Seen /hpf Urine Mucus Few None Seen Urine Glucose Trace Normal mg/dL Urine Opiates Screen Neg NEGATIVE Urine Fentanyl Screen Neg NEGATIVE Urine Barbiturates Screen Neg NEGATIVE Urine Phencyclidine Screen Neg NEGATIVE Urine Amphetamines Screen Neg NEGATIVE Urine Benzodiazepines Screen Neg NEGATIVE Urine Cocaine Screen Neg NEGATIVE Urine Cannabinoids Screen Neg NEGATIVE White Blood Count 10.0 4.4-10.8 10^3/uL Red Blood Count 4.39 L 4.5-5.90 10^6/uL Hemoglobin 14.7 13.5-17.5 g/dL Hematocrit 43.3 41.0-53.0 % Mean Corpuscular Volume 98.5 80.0-100.0 fL Mean Corpuscular Hemoglobin 33.5 H 28.0-32.0 pg Mean Corpuscular Hemoglobin Concent 34.0 32.0-36.0 g/dL Red Cell Distribution Width 13.4 11.8-14.3 % Platelet Count 232 140-450 10^3/uL Mean Platelet Volume 8.4 6.9-10.8 fL Neutrophils (%) (Auto) 73.0 37.0-80.0 % Lymphocytes (%) (Auto) 14.5 10.0-50.0 % Monocytes (%) (Auto) 11.1 0.0-12.0 % Eosinophils (%) (Auto) 1.0 0.0-7.0 % Basophils (%) (Auto) 0.4 0.0-2.0 % Neutrophils # (Auto) 7.3 1.6-8.6 10 ^3/uL Lymphocytes # (Auto) 1.4 0.4-5.4 10 ^3/uL Monocytes # (Auto) 1.1 0-1.3 10 ^3/uL Eosinophils # (Auto) 0.1 0-0.8 10 ^3/uL Basophils # (Auto) 0 0-0.2 10 ^3/uL Nucleated Red Blood Cells 0.1 % Sodium Level 137 136-145 mmol/L Potassium Level 3.4 L 3.5-5.1 mmol/L Chloride Level 106 98-107 mmol/L Carbon Dioxide Level 23 20-31 mmol/L Anion Gap 8 5-15 Blood Urea Nitrogen 10 9-23 mg/dL Creatinine 0.82 0.700-1.30 mg/dL Glomerular Filtration Rate Calc 108 >90 mL/min BUN/Creatinine Ratio 12.2 10.0-20.0 Serum Glucose 142 H 74-106 mg/dL Hemoglobin A1c 5.8 H <5.7 % A1C Calcium Level 8.7 8.7-10.4 mg/dL Total Bilirubin 0.5 0.2-1.0 mg/dL Aspartate Amino Transferase (AST) 14 13-40 U/L Alanine Aminotransferase (ALT) 25 7-40 U/L Alkaline Phosphatase 73 46-116 U/L Total Protein 6.9 5.7-8.2 g/dL Albumin 4.3 3.2-4.8 g/dL Vitamin B12 Level 272 211-911 pg/mL Vitamin D 25-Hydroxy 27.2 L 30.0-100 ng/mL Thyroid Stimulating Hormone (TSH) 1.08 0.55-4.78 uIU/mL Influenza Type A Antigen Negative Negative Influenza Type B Antigen Negative Negative SARS-CoV-2 Antigen (Rapid) Negative NEGATIVE Test 03/29/25 19:43 03/29/25 18:27 Range/Units Troponin I High Sensitivity 3 L </=54 ng/L Lactic Acid Level 1.5 0.4-2.0 mmol/L Microbiology Date/Time Source Procedure Growth Status 03/29/25 18:27 Blood Blood Culture - Preliminary NO GROWTH AFTER 24 HOURS OF INCUBATION. Resulted Assessment Migraine headache ? Complicated migraine headache Brain aneurysm Family history of brain aneurysm Plan/Recommendation Monitoring Supportive treatment Med surge CTA brain Current pain management for headache Avoid Triptan ergot agent for headache Good hydration Good sleep schedule Good meal schedule He has been advised, if his brain aneurysm is confirmed, he needs advised his other family to have screening tests for the brain aneurysm Progress: Poor This medical document was created using an electronic medical record system with [employer] system. Although this document has been carefully reviewed, there may still be some phonetic and typographical errors. These areas are purely typographical due to imperfections of the software programs, and do not reflect any compromise in the patient's medical care. Plan discussed with: Patient, Other PEDRO CARNEY MD Mar 30, 2025 22:16
[2025-03-31] VITALS (9 sets, daily range): BP systolic 115–151; BP diastolic 54–97; PULSE 65–104; RESP 18–22; TEMP 96.4–98.3; O2SAT 93–97
[2025-03-31] MEDS ORDERED: KETOROLAC TROMETH 30 MG/ML 1ML VIAL ONE (01:37)
[2025-03-31] MEDS: KETOROLAC TROMETH 30 MG/ML 1ML VIAL IV ONE ×2 (01:40→01:47)
[2025-03-31 06:52] LABS: Hematocrit 42.1 % (41.0-53.0); Hemoglobin 14.3 g/dL (13.5-17.5); Mean Corpuscular Hemoglobin 33.7 pg (28.0-32.0); Mean Corpuscular Volume 99.0 fL (80.0-100.0); Nucleated Red Blood Cells % 0.0 %
[2025-03-31 07:11] LABS: Alanine Aminotransferase 27 U/L (7-40); Alkaline Phosphatase 75 U/L (46-116); Anion Gap 9 (5-15); BUN/Creatinine Ratio 13.3 (10.0-20.0); Blood Urea Nitrogen 12 mg/dL (9-23); Calcium 8.9 mg/dL (8.7-10.4); Carbon Dioxide 24 mmol/L (20-31); Potassium 4.2 mmol/L (3.5-5.1); Sodium 141 mmol/L (136-145); Total Protein 7.0 g/dL (5.7-8.2)
[2025-03-31 07:12] LABS: Albumin 4.3 g/dL (3.2-4.8); Bilirubin, Total 0.5 mg/dL (0.2-1.0)
[2025-03-31 07:18] LABS: Chloride 108 mmol/L (98-107); Glucose 110 mg/dL (74-106)
[2025-03-31] MEDS ORDERED: LORazepam 2MG/ML-1ML VIAL IV PRN (08:45)
[2025-03-31] MEDS ORDERED: GELATIN 1 SPONGE SIZE 100 TOP ONE (10:22)
[2025-03-31] MEDS ORDERED: LIDOCAINE 2% JELLY 11ml (GLYDO) ONE (10:22)
[2025-03-31] MEDS ORDERED: MEPERIDINE HCL (25 MG/ML) 1ML VIAL ONE (10:53)
[2025-03-31] MEDS ORDERED: fentaNYL CITRATE 100 MCG/2 ML VL ONE (10:53)
[2025-03-31] MEDS ORDERED: MIDAZOLAM HCL 2MG/2ML 2ml VIAL (1mg/ml) ONE (10:54)
[2025-03-31] MEDS ORDERED: PROPOFOL 10 MG/ML 20 ML IV ONE (10:55)
[2025-03-31] MEDS ORDERED: KETAMINE 50mg/ML 1ml syringe ONE (10:55)
[2025-03-31] MEDS: IOHEXOL 300 MG/ML 100ML BOTTLE IJ ONE (11:30)
--- NOTE | 2025-03-31 12:27 | DVHOP ---
DATE OF SURGERY: 03/31/2025 PREOPERATIVE DIAGNOSIS: Retained foreign body, perianal skin. POSTOPERATIVE DIAGNOSIS: Retained foreign body, perianal skin. SURGEON: Alexis Hodgson MD. CLOTH DRIER: Mohsen Trejo NP. ANESTHESIA: General inhalation. ANESTHESIOLOGIST: Mr. Dubon. PROCEDURES: * Removal of retained foreign body. * Anal examination. * Incision and drainage of a small perianal abscess. DESCRIPTION OF PROCEDURE: Under adequate anesthesia with the patient in lithotomy position, prepped and draped, skin was incised over an area of induration and a small amount of purulent material was submitted for cultures and sensitivities. Subsequently, the retained object, which the patient has kept in his anus since an I and D of infection in the [facility] approximately 1.5 years ago was removed by removing the suture and the catheter, which appeared to be a small diameter hollow tube, was submitted for identification. The wound was then irrigated. Further endoscopic examination revealed no evidence of intra-anal abscess. There was a great deal of induration from the foreign body retention as well as from previous incisions and drainage evident by scarring. The patient remained stable throughout the procedure, left the operating room following an accurate needle and sponge count. No family members were present in the waiting area. MD FRANCHESCA Fishman/JOHANNA TID: [id number] RECEIPT: [id number]
[2025-03-31] MEDS ORDERED: MORPHINE SULFATE INJ 2 MG/ml SYRG IV PRN (13:00)
--- NOTE | 2025-03-31 13:36 | DVH ---
EXAM: MRI MRA ANGIO HEAD BRAIN DATE OF SERVICE: 03/31/2025 12:30 PM ORDERING PHYSICIAN: OSCAR MORILLO REASON FOR EXAM: aneurysm TECHNIQUE: MRA images of the brain were acquired without the administration of IV contrast. COMPARISON: CT CT HEAD NECK WITH CONT on DOS: 03/30/25 FINDINGS: Evaluation is limited due to image degradation secondary to patient motion. The anterior and posterior intracranial circulations are intact. There is no evidence for flow-limiting stenosis or occlusion. 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 There are large caliber A1 segment of the left JEANA. The A1 segment of the right JEANA is small in caliber. There is a large caliber right posterior communicating artery. IMPRESSION: Similar-appearing 7 mm aneurysm from the anterior communicating artery. Further workup recommended with surgical and/or neuro interventional consultation. End of Report
--- NOTE | 2025-03-31 16:58 | DVHPNRES ---
Progress Note Date Seen: Mar 31, 2025 Resident Creating Document: NYDIA HERNANDEZ MD Medical Necessity Reason Pt with a Central, PICC or Fol: No Subjective Review of Systems Patient seen at bedside. No new complaints. drain removal today in the OR. Valente Walsh is a 49-year-old male with past medical history of dyslipidemia, hypertension who came in with complaints of facial pressure is and aches since 4 years. Patient says the pain has been on and off, the pain increased since the past 2 days. The pain is associated with fever and chills. Patient denies any shortness of breath , diarrhea and vomiting. he rates the abdominal pain 5 on 10 in intensity, both sharp and dull with no radiation. Patient reports that he had surgery for rectal abscess and surgery 6 months ago in [place]. He reports that the doctor said to come back and take the drain out but he did not see back in [place] and came [place] patient says that the drain is still in the rectum. PMHx: dyslipidemia, hypertension PSHx: Ankle and wrist surgery, rectal surgery with tube in placed Family history: Hypertension and heart disease in parents and siblings. Social history: Twenty-five pack year smoking history Allergic history: penicillin, hydromorphone General: patient denies fever, fatigue, weaknes, sweating, any recent changes in appetite and weight HEENT: complains of pain in the left side of face Cardiovascular: Denies chest pain, palpitations, dyspnea on exertion, orthopnea, or claudication. Respiratory: No cough, and wheezing. Gastrointestinal: Denies nausea, vomiting, dysphagia, odynophagia, heartburn, abdominal pain, flatulence, bloating, diarrhea, constipation, change in stool, or blood in stool. Genitourinary: No dysuria, hematuria, discharge, frequency, urgency, nocturia, incontinence, and urinary retention. Endocrine: No heat or cold intolerance, polydipsia, polyuria, and polyphagia. Neurological: No dizziness, extremity weakness and numbness, tremors, gait disturbance, seizures, and memory impairment. Psychiatric: Denies depression, anxiety,or insomnia. Musculoskeletal: Denies neck pain, stiffness and swelling, back pain, muscle weakness, joint pain, stiffness, swelling, or limited range of motion. Skin: No rashes, itching, skin lesion, changes in hair, nail, skin texture and breast. Hematologic/Lymphatic: Denies easy bruising, bleeding tendencies, or lymph node enlargement. Objective vital signs Vital Sign Date Time Temp Pulse Resp B/P (MAP) Pulse Ox O2 Delivery O2 Flow Rate FiO2 03/31/25 12:54 96.4 79 20 130/97 (108) 96 96.4 03/31/25 11:15 Mask 5.0 97 Total Intake and Output 03/30/25 03/30/25 03/31/25 15:00 23:00 07:00 Intake Total 100 ml 1100 ml 600 ml Output Total 750 ml Balance 100 ml 1100 ml -150 ml medications Current Medications Medications Dose Ordered Sig/Pooja Route Start Time Stop Time Status Last Admin Dose Admin Enoxaparin Sodium 40 mg DAILY SC 03/30/25 10:00 03/30/25 09:40 40 MG Pantoprazole Sodium 40 mg DAILY@0600 PO 03/30/25 06:00 03/30/25 04:58 40 MG Acetaminophen 650 mg Q6HR PO 03/30/25 12:00 03/31/25 00:02 650 MG Ibuprofen 600 mg Q8HP PRN PO 03/30/25 10:15 03/30/25 17:25 600 MG Metronidazole 100 ml @ 100 mls/hr Q8HR IV 03/30/25 14:00 03/31/25 14:04 100 MLS/HR Levofloxacin/ Dextrose 100 ml @ 100 mls/hr DAILY IV 03/31/25 10:00 03/31/25 11:40 Lorazepam 1 mg ONCE PRN IV 03/31/25 08:45 03/31/25 23:59 Morphine Sulfate 2 mg Q6HPRN PRN IV 03/31/25 13:00 Acetaminophen/ Hydrocodone Bitart 1 tab Q6HP PRN PO 03/31/25 13:00 Examination General Appearance: Alert, Oriented X3, Cooperative, No acute distress HEENT: tenderness in the left side of face Respiratory: Clear to auscultation, Normal air movement Cardiovascular: Regular rate, Normal S1, Normal S2, No murmurs, no chest wall tenderness Abdominal: Normal bowel sounds, Soft, No tenderness, No hepatospenomegaly, No masses Extremities: No clubbing, No cyanosis, No edema, Normal pulses, No tenderness/swelling Skin: No rashes, No breakdown, No significant lesion Neuro: Normal gait, Normal speech, Strength at 5/5 X4 ext, Normal tone, Sensation intact, Cranial nerves 3-12 NL, Reflexes 2+ Psych/Mental Status: Mental status NL, Mood NL laboratory and microbiology Laboratory Tests 03/31/25 05:23 Test 03/31/25 05:23 Range/Units Serum Glucose 110 H 74-106 mg/dL Microbiology Date/Time Source Procedure Growth Status 03/30/25 15:00 Urine - Midstream Clean Catch Urine Culture - Preliminary No growth Resulted 03/29/25 18:27 Blood Blood Culture - Preliminary NO GROWTH AFTER 24 HOURS OF INCUBATION. Resulted Problem List/Assessment/Plan Problem List/Assessment/Plan Assessment and plan Complex migraine headache -Acetaminophen -NSAIDs Sepsis due to rectal abscess ruled out Retropharyngeal or peritonsillar abscess -IV fluid -IV levofloxacin and IV metronidazole -blood culture, urinalysis ordered -abdomen pelvis CT: No CT evidence of an acute abdominal/pelvic process. Oval- shaped masslike density located in the left lung base measuring 29 x 23 mm. Consider further evaluation with dedicated CT of the chest with contrast. - negative MRI neck and maxillofacial sinus ruled out stroke -CT head negative Lung mass -Chest x-ray: Area of wedge-shaped alveolar opacity of the periphery of the left upper lobe. -Outpatient follow up Essential hypertension - target in-hospital blood pressure below 140/90 - follow up with PCP on discharge Dyslipidemia - Follow lipid levels vitamin-D deficiency - vitamin-D supplement GI prophylaxis: Pantoprazole DVT prophylaxis: Lovenox Diet : Cardiac Goals of care : Full code status Case discussed with Dr. Merida Plan discussed with: Patient Date of Service: Mar 31, 2025 Billing Provider: NYDIA HERNANDEZ MD Common Visit Codes: [id number] INP/OBS CARE(HIGH) OSCAR MORILLO RESIDENT Mar 31, 2025 16:58
--- NOTE | 2025-03-31 21:00 | DVHPN2 ---
Progress Note - Dictate Date Seen: Mar 31, 2025 Medical Necessity Reason Pt with a Central, PICC or Fol: No Subjective Mr. Walsh is a 49 years old right-handed gentleman with a history of hypertension, dyslipidemia, obesity, the patient is status post per rectal surgery, and he is here for tube replacement. I have seen and examined the patient, talked to his nurse. He went through incision and drainage of a perianal abscess He is doing fine, alert and fully oriented, no new complaints His MRA brain scan confirmed an JEANA aneurysm I have discussing, he agreed to share with his family about his diagnosis of brain aneurysm, so they can discuss with their family doctors for screening tests UDS, 03/30/2025: Negative WBC/HB/PLT/MCV, 03/30/2025: 10/14.7/232/98.5 BMP 03/30/2025: Unremarkable LFT 03/30/2025: Unremarkable HGB A1c, 03/30/2025: 5.8 Vitamin B12, 03/30/25: 272 TSH, 03/30/2025: 1.3 CT head, neck, 03/30/2025: No suspicious neck mass or cervical lymphadenopathy. Incompletely evaluated probable 6 mm aneurysm in the anterior communicating artery region. Recommend CTA for further evaluation. Masslike peripheral consolidation in the left upper lobe. 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 Recommend dedicated CT angiogram head and neurosurgical consultation. Right mandibular 2nd molar tooth periapical lucency/ abscess. Bilateral facial region soft tissue stranding/ skin thickening but no abscess identified. Correlate for cellulitis and other etiologies MRA head, 03/31/2025: Similar-appearing 7 mm aneurysm from the anterior communicating artery. Further workup recommended with surgical and/or neuro interventional consultation. vital signs Vital Sign Date Time Temp Pulse Resp B/P (MAP) Pulse Ox O2 Delivery O2 Flow Rate FiO2 03/31/25 17:12 96.8 92 20 151/95 (113) 95 96.8 03/31/25 11:15 Mask 5.0 97 Total Intake and Output 03/30/25 03/30/25 03/31/25 15:00 23:00 07:00 Intake Total 100 ml 1100 ml 600 ml Output Total 750 ml Balance 100 ml 1100 ml -150 ml medications Current Medications Medications Dose Ordered Sig/Pooja Route Start Time Stop Time Status Last Admin Dose Admin Enoxaparin Sodium 40 mg DAILY SC 03/30/25 10:00 03/30/25 09:40 40 MG Pantoprazole Sodium 40 mg DAILY@0600 PO 03/30/25 06:00 03/30/25 04:58 40 MG Acetaminophen 650 mg Q6HR PO 03/30/25 12:00 03/31/25 17:49 650 MG Ibuprofen 600 mg Q8HP PRN PO 03/30/25 10:15 03/30/25 17:25 600 MG Metronidazole 100 ml @ 100 mls/hr Q8HR IV 03/30/25 14:00 03/31/25 14:04 100 MLS/HR Levofloxacin/ Dextrose 100 ml @ 100 mls/hr DAILY IV 03/31/25 10:00 03/31/25 11:40 Lorazepam 1 mg ONCE PRN IV 03/31/25 08:45 03/31/25 23:59 Morphine Sulfate 2 mg Q6HPRN PRN IV 03/31/25 13:00 Acetaminophen/ Hydrocodone Bitart 1 tab Q6HP PRN PO 03/31/25 13:00 objective General: the patient is well developed and nourished. No acute distress. MENTAL STATUS: Awake and alert. Oriented to person, place, time and general circumstances. Able to give personal history. SPEECH, LANGUAGE, HIGHER CORTICAL FUNCTION: no aphasia or dysathria. CRANIAL NERVES: Pupils are equal, round and reactive. EOMs full and conjugate. No nystagmus. Facial sensation intact in all three divisions bilaterally. Mandibular strength intact. Facial muscles symmetrical and strength intact. SENSATION: Sensation to touch and pinprick is normal. MOTOR: Normal tone in the upper and lower extremity. Normal muscle bulk. No fasciculations. No abnormal movements or posturing. Muscle strength of the major groups in the extremities is 5/5. REFLEXES: Deep tendon reflexes are symmetrical. No pathological reflexes. CEREBELLAR/COORDINATION: Finger to nose and heel to adams are normal bilaterally. GAIT/STATION: deferred laboratory and microbiology Laboratory Tests 03/31/25 05:23 Test 03/31/25 05:23 Range/Units Serum Glucose 110 H 74-106 mg/dL Problem List Migraine headache ? Complicated migraine headache Brain aneurysm Family history of brain aneurysm Assessment/Plan Monitoring Supportive treatment Med surge Current pain management for headache Avoid Triptan ergot agent for headache Good hydration Good sleep schedule Good meal schedule He has been advised to advise his other family to have screening tests for the brain aneurysm This medical document was created using an electronic medical record system with [employer] dictation system. Although this document has been carefully reviewed, there may still be some phonetic and typographical errors. These areas are purely typographical due to imperfections of the software programs, and do not reflect any compromise in the patient's medical care. Prognosis poor Plan discussed with: Patient, Other Total Time (mins): 38 PEDRO CARNEY MD Mar 31, 2025 21:00
[2025-04-01 01:00] VITALS: BP 148/95; PULSE 10; RESP 20; TEMP 97; O2SAT 94
[2025-04-01] MEDS ORDERED: HYDROcodone-ACET 10/325MG TAB ONE (01:22)
[2025-04-01] MEDS: HYDROcodone-ACET 10/325MG TAB PO PRN (01:24)
[2025-04-01 05:00] VITALS: BP 177/97; PULSE 94; RESP 21; TEMP 97.5; O2SAT 97
[2025-04-01 06:57] LABS: Hematocrit 41.1 % (41.0-53.0); Hemoglobin 14.0 g/dL (13.5-17.5); Mean Corpuscular Hemoglobin 33.4 pg (28.0-32.0); Mean Corpuscular Volume 98.3 fL (80.0-100.0); Nucleated Red Blood Cells % 0.0 %
--- NOTE | 2025-04-01 06:57 | DVHPN2 ---
Progress Note Date Seen: Apr 01, 2025 Medical Necessity Reason Pt with a Central, PICC or Fol: No Objective vital signs Vital Sign Date Time Temp Pulse Resp B/P (MAP) Pulse Ox O2 Delivery O2 Flow Rate FiO2 04/01/25 05:00 97.5 94 21 177/97 (123) 97 97.5 03/31/25 20:00 Room Air* 0 21 Total Intake and Output 03/31/25 03/31/25 04/01/25 15:00 23:00 07:00 Intake Total 400 ml 1040 ml 1040 ml Output Total 600 ml 525 ml Balance 400 ml 440 ml 515 ml medications Current Medications Medications Dose Ordered Sig/Pooja Route Start Time Stop Time Status Last Admin Dose Admin Enoxaparin Sodium 40 mg DAILY SC 03/30/25 10:00 03/30/25 09:40 40 MG Pantoprazole Sodium 40 mg DAILY@0600 PO 03/30/25 06:00 04/01/25 05:35 40 MG Acetaminophen 650 mg Q6HR PO 03/30/25 12:00 04/01/25 05:37 650 MG Ibuprofen 600 mg Q8HP PRN PO 03/30/25 10:15 03/30/25 17:25 600 MG Metronidazole 100 ml @ 100 mls/hr Q8HR IV 03/30/25 14:00 04/01/25 05:37 100 MLS/HR Levofloxacin/ Dextrose 100 ml @ 100 mls/hr DAILY IV 03/31/25 10:00 03/31/25 11:40 Morphine Sulfate 2 mg Q6HPRN PRN IV 03/31/25 13:00 Acetaminophen/ Hydrocodone Bitart 1 tab Q6HP PRN PO 03/31/25 13:00 04/01/25 01:24 1 TAB laboratory and microbiology Test 04/01/25 06:12 Range/Units Serum Glucose Pending Problem List/Assessment/Plan Problem List/Assessment/Plan 04/01/25 fewels very well, no pain, afebrile, cleared for discharge from surgical point of view Plan discussed with: Patient GEOFF FELTON MD Apr 01, 2025 06:57
[2025-04-01 07:14] LABS: Alanine Aminotransferase 27 U/L (7-40); Alkaline Phosphatase 76 U/L (46-116); Anion Gap 10 (5-15); BUN/Creatinine Ratio 14.7 (10.0-20.0); Blood Urea Nitrogen 14 mg/dL (9-23); Calcium 9.2 mg/dL (8.7-10.4); Carbon Dioxide 23 mmol/L (20-31); Chloride 106 mmol/L (98-107); Potassium 4.4 mmol/L (3.5-5.1); Sodium 139 mmol/L (136-145); Total Protein 7.1 g/dL (5.7-8.2)
[2025-04-01 07:15] LABS: Albumin 4.4 g/dL (3.2-4.8); Bilirubin, Total 0.5 mg/dL (0.2-1.0); Glucose 212 mg/dL (74-106)
[2025-04-01 08:00] VITALS: O2SAT 95
[2025-04-01 09:00] VITALS: BP 150/103; PULSE 93; RESP 20; TEMP 98.9; O2SAT 95
[2025-04-01] MEDS ORDERED: PROC10TA6 PO (11:13)
[2025-04-01] MEDS ORDERED: BACDST PO (11:13)
[2025-04-01] MEDS ORDERED: ESOM20CA70 PO (11:13)
[2025-04-01 13:00] VITALS: BP 139/87; PULSE 101; RESP 19; TEMP 98; O2SAT 96
[2025-04-01 14:17] VITALS: BP 150/103; PULSE 93; RESP 20; TEMP 98.9; O2SAT 95
--- NOTE | 2025-04-01 15:11 | DVHDSRES ---
Discharge Summary Date of Admission Resident Creating Document: OSCAR MORILLO RESIDENT Mar 29, 2025 at 21:52 Date of Discharge: Apr 01, 2025 Labs/Diagnostic Data: Laboratory Results Test 04/01/25 06:12 03/30/25 15:17 03/30/25 15:00 03/30/25 05:30 White Blood Count 16.4 10^3/uL (4.4-10.8) Red Blood Count 4.18 10^6/uL (4.5-5.90) Hemoglobin 14.0 g/dL (13.5-17.5) Hematocrit 41.1 % (41.0-53.0) Mean Corpuscular Volume 98.3 fL (80.0-100.0) Mean Corpuscular Hemoglobin 33.4 pg (28.0-32.0) Mean Corpuscular Hemoglobin Concent 34.0 g/dL (32.0-36.0) Red Cell Distribution Width 13.4 % (11.8-14.3) Platelet Count 263 10^3/uL (140-450) Mean Platelet Volume 8.5 fL (6.9-10.8) Neutrophils (%) (Auto) 84.4 % (37.0-80.0) Lymphocytes (%) (Auto) 7.2 % (10.0-50.0) Monocytes (%) (Auto) 8.3 % (0.0-12.0) Eosinophils (%) (Auto) 0.0 % (0.0-7.0) Basophils (%) (Auto) 0.1 % (0.0-2.0) Neutrophils # (Auto) 13.9 10 ^3/uL (1.6-8.6) Lymphocytes # (Auto) 1.2 10 ^3/uL (0.4-5.4) Monocytes # (Auto) 1.4 10 ^3/uL (0-1.3) Eosinophils # (Auto) 0 10 ^3/uL (0-0.8) Basophils # (Auto) 0 10 ^3/uL (0-0.2) Nucleated Red Blood Cells 0.0 % Sodium Level 139 mmol/L (136-145) Potassium Level 4.4 mmol/L (3.5-5.1) Chloride Level 106 mmol/L (98-107) Carbon Dioxide Level 23 mmol/L (20-31) Anion Gap 10 (5-15) Blood Urea Nitrogen 14 mg/dL (9-23) Creatinine 0.95 mg/dL (0.700-1.30) Glomerular Filtration Rate Calc 98 mL/min (>90) BUN/Creatinine Ratio 14.7 (10.0-20.0) Serum Glucose 212 mg/dL (74-106) Calcium Level 9.2 mg/dL (8.7-10.4) Total Bilirubin 0.5 mg/dL (0.2-1.0) Aspartate Amino Transferase (AST) 12 U/L (13-40) Alanine Aminotransferase (ALT) 27 U/L (7-40) Alkaline Phosphatase 76 U/L (46-116) Total Protein 7.1 g/dL (5.7-8.2) Albumin 4.4 g/dL (3.2-4.8) Prothrombin Time 10.7 sec (9.3-11.8) Prothrombin Time INR 1.01 (0.9-1.15) Activated Partial Thromboplast Time 30.4 SEC (24.5-34.5) Urine Color Yellow (Yellow) Urine Clarity Clear (Clear) Urine pH 5.5 (5.0-9.0) Urine Specific [place] > 1.050 (1.001-1.035) Urine Protein Trace (Negative) Urine Ketones Trace (Negative) Urine Blood Trace /uL (Negative) Urine Nitrite Negative (Negative) Urine Bilirubin Negative (Negative) Urine Urobilinogen Normal mg/dL (Negative) Urine Leukocyte Esterase Negative /uL (Negative) Urine RBC 1 /hpf (0 - 3) Urine Microscopic WBC < 1 /HPF (0-3) Urine Squamous Epithelial Cells None seen /hpf (<5) Urine Bacteria None seen /hpf (None Seen) Urine Mucus Few (None Seen) Urine Glucose Trace mg/dL (Normal) Urine Opiates Screen Neg (NEGATIVE) Urine Fentanyl Screen Neg (NEGATIVE) Urine Barbiturates Screen Neg (NEGATIVE) Urine Phencyclidine Screen Neg (NEGATIVE) Urine Amphetamines Screen Neg (NEGATIVE) Urine Benzodiazepines Screen Neg (NEGATIVE) Urine Cocaine Screen Neg (NEGATIVE) Urine Cannabinoids Screen Neg (NEGATIVE) Hemoglobin A1c 5.8 % A1C (<5.7) Vitamin B12 Level 272 pg/mL (211-911) Vitamin D 25-Hydroxy 27.2 ng/mL (30.0-100) Thyroid Stimulating Hormone (TSH) 1.08 uIU/mL (0.55-4.78) Test 03/29/25 22:39 03/29/25 19:43 03/29/25 18:27 Influenza Type A Antigen Negative (Negative) Influenza Type B Antigen Negative (Negative) SARS-CoV-2 Antigen (Rapid) Negative (NEGATIVE) Troponin I High Sensitivity 3 ng/L (</=54) Lactic Acid Level 1.5 mmol/L (0.4-2.0) Other Laboratory Tests 04/01/25 06:12 Brief Hx & Hospital Course: Valente Walsh is a 49-year-old male with past medical history of dyslipidemia, hypertension who came in with complaints of facial pressure is and aches since 4 years. Patient said the pain has been on and off, the pain increased since the past 2 days. The pain is associated with fever and chills. Patient denies any shortness of breath , diarrhea and vomiting. he rated the abdominal pain 5 on 10 in intensity, both sharp and dull with no radiation. Patient reported that he had surgery for rectal abscess and surgery 6 months ago in [place]. He reported that the doctor said to come back and take the drain out but he did not see back in [place] and came [place], says that the drain is still in the rectum. CT revealed oval mass in the left lung base. 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 surgery and Neurology was consulted. surgeon removed with the foreign body from the anus in the OR. Patient will be referred to a neurosurgeon as outpatient for the aneurysm. He has been advised to advised the family to have screening test for brain aneurysm by the neurologist. Discharge plan Follow up with PCP in 7 days Follow up with neurosurgeon as outpatient for aneurysm Follow up with meat and poultry inspector as outpatient for lung mass Continue home medications Condition at Discharge: Fair Final Diagnosis/Problems List Sepsis due to rectal abscess rectal abscess, s/p I&D and removal of retained abscess drain tube Complex migraine headache Anterior communicating artery aneurysm Status post Incision and drainage of a small perianal abscess Removal of retained foreign body ruled out Retropharyngeal or peritonsillar abscess ruled out stroke Lung mass, rule out neoplasm Essential hypertension Dyslipidemia vitamin-D deficiency Discharge Disposition: Home Discharge Instruct/Medications Diet: Cardiac 2g Na,low cholest Activity: No Restrictions, As Tolerated Follow Up/Referral: Follow up with PCP in 7 days Follow up with Neurosurgery as outpatient for aneurysm Follow with meat and poultry inspector for lung mass Medications: As per EHR Scheduled Amlodipine Besylate (Amlodipine Besylate), 1 TAB PO DAILY Atorvastatin Calcium (Lipitor), 1 TAB PO QPM Esomeprazole Magnesium (Esomeprazole Magnesium Dr), 20 MG PO DAILY Prochlorperazine Maleate (Compazine), 1 TAB PO Q6HR Sulfamethoxazole W/Trimethopri (Bactrim Ds Tablet), 1 TAB PO BID Discharge Statement: "Patient was advised to return to the ER or call 911 if any headaches, dizziness, shortness of breath, chest pain, abdominal pain, bleeding, fevers, or worsening of medical condition. Patient was counseled about treatment plan, medications, possible side effects, patientverbalized understanding. All questions were answered to the best of my ability. This discharge took greater then 30 minutes in planning, reviewing documentation, counseling the patient, and discussing with other team members." ASSESSMENT ASSESSMENT Assessment Complex migraine headache Date of Service: Apr 01, 2025 Billing Provider: NYDIA HERNANDEZ MD Common Visit Codes: 89461-CRW/OBS DISCH DAY >30min OSCAR MORILLO Apr 01, 2025 15:11 NYDIA HERNANDEZ MD Apr 03, 2025 10:52
== END 2025-04-01 17:21 | disposition home or self-care (01) | DRG 854 ==
LOC: ER 15:56 → OVERFLOW 21:52 → WEST WING 03-30 14:26
PROVIDERS: ADMIT Student in an Organized Health Care Education/Training Program; ATTEND Student in an Organized Health Care Education/Training Program
PROC: 0DCQ7ZZ Extirpation of Matter from Anus, Via Natural or Artificial Opening (ICD-10-PCS; 2025-03-31)
PROC: 0D9Q0ZZ Drainage of Anus, Open Approach (ICD-10-PCS; principal; 2025-03-31 10:50)
DX: A41.9 Sepsis, unspecified organism (principal); K61.0 Anal abscess; I67.1 Cerebral aneurysm, nonruptured; K61.1 Rectal abscess; I10 Essential (primary) hypertension; E66.9 Obesity, unspecified; E78.5 Hyperlipidemia, unspecified; G43.909 Migraine, unspecified, not intractable, without status migrainosus; G43.109 Migraine with aura, not intractable, without status migrainosus; Z20.822 Contact with and (suspected) exposure to COVID-19; E55.9 Vitamin D deficiency, unspecified; F17.200 Nicotine dependence, unspecified, uncomplicated; Z68.36 Body mass index [BMI] 36.0-36.9, adult; Z79.82 Long term (current) use of aspirin; Z82.3 Family history of stroke; Z82.49 Family history of ischemic heart disease and other diseases of the circulatory system; Z83.3 Family history of diabetes mellitus; Z88.5 Allergy status to narcotic agent; Z88.0 Allergy status to penicillin; Z79.899 Other long term (current) drug therapy
CPT/HCPCS: 36415; 70460; 70486; 70491; 70545; 71045; 74177; 80048; 80053; 80307; 81001; 82306; 82607; 83036; 83605; 84443; 84484; 85025; 85610; 85730; 86850; 86900; 86901; 87040; 87070; 87075; 87077; 87086; 87186; 87205; 87426; 87804; 96374; 96375; G0378; J1100; J1885; J1956; J2250; J2704; J3490

== ENCOUNTER 2025-04-02 15:35 | Emergency (ER) | payer MEDICARE, MEDICAID ==
[~2025-04-02] VITALS: Ht 190.5 cm; Wt 130.0 kg
[~2025-04-02 15:35] MED LIST changes: +BACDST PO; +ESOM20CA70 PO; +PROC10TA6 PO
[2025-04-02 15:37] VITALS: BP 136/86; PULSE 98; RESP 16; TEMP 97.6; O2SAT 95
== END 2025-04-02 19:33 | disposition left against medical advice (07) ==
LOC: ER 15:35
DX: Z48.00 Encounter for change or removal of nonsurgical wound dressing (principal); Z53.21 Procedure and treatment not carried out due to patient leaving prior to being seen by health care provider